=== PATIENT | male | born 1980 | race Two or more races ===

== ENCOUNTER 2025-02-17 15:42 | Inpatient (IN) | payer OTHER, SELFPAY ==
[2025-02-17 15:50] VITALS: BP 125/68
[2025-02-17 15:54] VITALS: BMI 43.4
--- NOTE | 2025-02-17 15:56 | HP.FOC2 ---
Focused History & Physical
Chief Complaint
HPI:
Chief Complaint: Nonhealing wound over the right lateral calf
HPI / Indication for Planned Procedure: 44 yo male with PMH significant for hip infection, endocarditis, multiple strokes (last 2011), pacemaker, prosthetic valve, and ambulatory dysfunction. Pt came in for direct admit for anticoagulation
transition with heparin for arteriogram tomorrow 02/[address] Gudino. Pt arrives at his baseline health. Denies recent illnesses or trauma. Denies changes to his medications. Denies changes to his wound/leg.
Relevant Past Medical History: Stroke and Other (See above)
Relevant Past Surgical History: Positive for (See above)
Review of Systems
Review of Pertinent Systems: All Systems Negative
Medication
See Medication form for detailed medications: Yes
Allergies and Reactions
Patient has Allergies: No
Noted Allergies and Reactions:
Allergy/AdvReac Type Severity Reaction Status Date / Time
No Known Allergies Allergy Unverified 02/17/25 15:37
Pertinent Physical Exam
All Other Systems: Negative
Head/Neck: Normal
Lungs: Normal
Heart: Normal
Abdomen: Normal
Extremities: Other (RLE wrapped with gauze, BL feet warm and pink)
Neurological: Normal
Diagnosis / Assessment
PAD, nonhealing LE wound
Plan / Procedure
RLE arteriogram, possible IVL/CHEMISTRY INTERN/stent placement, possible pedal access with Dr Gudino on 02/18/25
Anesthesia/Sedation to be done by Anesthesia Provider: Yes
--- NOTE | 2025-02-17 16:50 | PTCARENOTE ---
direct admit under vascular practice. Pt is AOx3. LCTA B/L RA, abd round obese. Pace maker present AV paced. pt is w/c dependent. +PP detected with Doppler bilaterally. Dressing to RLE CDI. pt reports VN services at home. oriented to surroundings CB
in reach, instructed to use. contacting vascular for access
[2025-02-17 17:53] LABS: Hematocrit 38.8 % (39.0-52.0); Hemoglobin 12.4 g/dL (13.0-18.0); Mean Corpuscular Hgb 28.1 pg (27.0-31.0); Mean Corpuscular Volume 87.8 fL (80.0-94.0); Mean Platelet Volume 9.4 fL (7.4-10.4); Platelet Count 320 10^3/uL (130-400); Red Blood Cell Count 4.42 10^6/uL (4.70-6.10); Red Cell Dist. Width 16.6 % (11.5-14.5); White Blood Cell Count 8.5 10^3/uL (4.8-10.8)
[2025-02-17 17:56] LABS: INR 1.11; PT 14.8 Sec (11.4-14.6)
[2025-02-17 17:57] LABS: APTT 31.7 Sec (23.4-35.0)
[2025-02-17 18:00] LABS: Blood Urea Nitrogen 28 mg/dl (9-20); Calcium 8.8 mg/dl (8.4-10.2); Carbon Dioxide 33 mmol/L (22-30); Chloride 102 mmol/L (98-107); Estimated Creatinine Clearance 101 ml/min; Glucose 100 mg/dl (70-99); Potassium 4.5 mmol/L (3.5-5.1); Sodium 139 mmol/L (135-145); eGFR > 60.00
[2025-02-17 19:10] VITALS: BP 120/80
[2025-02-17] MEDS: HEPARIN 10000 UNITS IV (20:17)
[2025-02-17] MEDS: HEPARIN 25000 UNITS/250 ML IV (20:18)
--- NOTE | 2025-02-17 20:30 | PTCARENOTE ---
Heparin gtt started per MD order. Pt refusing to be turned and repositioned. Pt refusing hygeine at this time. Pt refusing Rt LE leg wound dressing change, pt states Mother changed it in am. Roxicodone administered for 6/10 RLE pain. Pt given
crackers for snack. HR in the 70's AV paced on the monitor. Call langston in reach. Will continue to monitor.
[2025-02-17] MEDS: ROXICODONE 5 MG PO (20:33)
[2025-02-17 23:10] VITALS: BP 121/68
[2025-02-18] VITALS (11 sets, daily range): BP systolic 95–132; BP diastolic 55–77; BMI 41.5
[2025-02-18] MEDS: TYLENOL 650 MG PO (00:40)
[2025-02-18 03:48] LABS: APTT > 200.0 Sec (23.4-35.0)
--- NOTE | 2025-02-18 03:53 | PTCARENOTE ---
PTT >200. Per protocol Heparin gtt placed on hold for 2 hours. Jomar JAMES notified. Will continue to [facility].
[2025-02-18] MEDS: NSS 500 IV (06:05)
[2025-02-18 07:10] LABS: INR 1.09; PT 14.6 Sec (11.4-14.6)
[2025-02-18 07:14] LABS: Blood Urea Nitrogen 29 mg/dl (9-20); Calcium 8.8 mg/dl (8.4-10.2); Carbon Dioxide 32 mmol/L (22-30); Chloride 103 mmol/L (98-107); Estimated Creatinine Clearance 99 ml/min; Glucose 77 mg/dl (70-99); Potassium 4.2 mmol/L (3.5-5.1); Sodium 139 mmol/L (135-145); eGFR > 60.00
[2025-02-18 07:16] LABS: Hematocrit 40.1 % (39.0-52.0); Hemoglobin 13.1 g/dL (13.0-18.0); Mean Corp Hgb Conc. 32.7 g/dL (33.0-37.0); Mean Corpuscular Hgb 28.9 pg (27.0-31.0); Mean Corpuscular Volume 88.5 fL (80.0-94.0); Platelet Count 335 10^3/uL (130-400); Red Blood Cell Count 4.53 10^6/uL (4.70-6.10); Red Cell Dist. Width 16.8 % (11.5-14.5); White Blood Cell Count 6.9 10^3/uL (4.8-10.8)
[2025-02-18] MEDS: KLONOPIN 0.5 MG PO (10:54)
[2025-02-18] MEDS: LASIX 40 MG PO (10:55)
[2025-02-18] MEDS: COZAAR 50 MG PO (10:55)
[2025-02-18] MEDS: LOW STRENGTH ASPIRIN 81 MG PO (10:55)
[2025-02-18] MEDS: SYNTHROID 88 MCG PO (10:55)
[2025-02-18] MEDS: METHOCARBAMOL 750 MG PO ×2 (10:55→20:27)
[2025-02-18] MEDS: NORVASC 5 MG PO (10:55)
[2025-02-18] MEDS: PROTONIX 40 MG PO (10:55)
[2025-02-18] MEDS: TOPROL XL 25 MG PO (10:56)
--- NOTE | 2025-02-18 12:05 | PTCARENOTE ---
Patient is able to turn self [id number], but not able to pull self up in the bed. Max assist x2-3 to pull patient up in bed.
[2025-02-18 12:10] LABS: APTT 93.3 Sec (23.4-35.0)
--- NOTE | 2025-02-18 13:11 | CM ---
CM following re: discharge planning.
Reviewed pt's chart, met with pt.
Pt is a 44 year old male, admitted with primary dx of Nonhealing wound over the right lateral calf
Pt reports he was born and raised in [place], emigrated to [facility] [place] years ago and resided with mother in [place]. Pt rapports he lives with mother 1SH, no steps to enter. Pt reports he receives SSD, enrolled in PDA waiver community based services
with [employer], receives 40 hours of caregiver services per week provided by mother and manages by [facility]. Pt reports he mostly uses a wheelchair, has a walker, known to [facility] for PT, OT, RN. pt expressed his desire to return back home with
resumptions of [facility], caregiver services and family support. Pt stated he usually getting home from hospitals by ambulance.
PCP: Jj Hernandez
Pharmacy: pt stated private pharmacy in [facility].
D/c plan: return back home with resumptions of [facility], caregiver services and family support.
CM will [id number] with discharge plan updates as hospitalization progresses
--- NOTE | 2025-02-18 13:31 | W.SUR.PREOP ---
Pre-Operative Surgical Note
-
I have examined this patient prior to the performance of the scheduled procedure.
The patient's condition is unchanged from the time of the current History and
Physical and the patient is able to undergo the scheduled procedure.
[2025-02-18] MEDS: HEPARIN 25000 UNITS/250 ML IV (14:31)
--- NOTE | 2025-02-18 14:41 | PTCARENOTE ---
Report given to [facility] leaf [facility]. Patient being transported to [facility]. Patient refused to go to [facility] unless he received his Methadone. Per lab tester, hold methadone dose. patient also refused to remove watches (2) and barron not leave cell phone in the
room. Eli in [facility] made aware.
--- NOTE | 2025-02-18 14:58 | TRANSFER ---
Patient received from [address] [place] [address] after receiving report from Amelia BROTHERS. Patient being seen by Dr. Ruiz currently. BP 110/72 HR 70, 97% and 16RR.
[2025-02-18 16:36] LABS: ACT-LR - POC 152 Seconds (116-155)
[2025-02-18 17:12] LABS: ACT-LR - POC 385 Seconds (116-155)
--- NOTE | 2025-02-18 18:20 | OR.RPT ---
Operative Report
Operative Report
Date of Operation: 02/18/2025
Pre Op Diagnosis:
1. [place] artery occlusive disease right lower extremity with nonhealing right lateral calf and ankle wound
2. Limb threatening ischemia, right lower extremity
Post Op Diagnosis:
1. [place] artery occlusive disease right lower extremity with nonhealing right lateral calf and ankle wound
2. Limb threatening ischemia, right lower extremity
Procedure:
1.) Balloon angioplasty of right tibioperoneal trunk
2.) Balloon angioplasty of right proximal peroneal artery
3.) Balloon angioplasty of right popliteal artery
4.) Balloon angioplasty of right superficial femoral artery
5.) Diagnostic aortobiiliac arteriogram
6.) Diagnostic right lower extremity arteriogram
7.) Ultrasound-guided percutaneous access left common femoral artery
8.) Pro-glide closure left common femoral artery access
Surgeon: Emmett Gudino III, MD
Special Event Assistant: Avinash White MD PGY1
Anesthesia: Sedation with local
Fluoroscopy:
40.9 min
270 mGy
66.33 gy.cm2
Complications: None
Estimated Blood Loss: 10 cc
History and Indications for Procedure: 44-year-old male with complex history including aortic valve endocarditis. Long hospital course following this event. Has now developed nonhealing wounds over the right lateral calf near the ankle.
Preoperative CTA showed occlusions of the right superficial femoral artery and popliteal artery. He was interested in limb preservation options.
Procedure in Detail: Selena Hong was correctly identified and placed supine on the operating table. After adequate induction of anesthesia the bilateral groins were prepped and draped in the usual sterile fashion. A timeout was performed with the
nursing and anesthesia staff confirming the patient's identity as well as the nature and laterality of the procedure.
The left common femoral artery was identified under ultrasound guidance. The artery was patent. The superior and inferior aspects of the femoral head were identified with radiographic guidance and marked at the skin level. The proposed puncture site
was infiltrated with local anesthesia. Under ultrasound guidance we accessed the left common femoral artery with a micropuncture needle and upsized to a 5 Fr sheath over a [employer] wire. The wire and a Shepherds hook flush catheter were advanced into
the distal abdominal aorta and a diagnostic aorto-biiliac arteriogram was performed:
AORTO-ILIAC ARTERIOGRAM:
Aorta: Widely patent with no stenosis identified
Right common iliac artery: Widely patent with no stenosis identified
Right external iliac artery: Widely patent with no stenosis identified
Left common iliac artery: Widely patent with no stenosis identified
Left external iliac artery: Widely patent with no stenosis identified
Under roadmap guidance using a Glidewire and the Shepherds hook catheter we selected the right common iliac artery and then the external iliac artery. A catheter was tracked up and over the aortic bifurcation and placed in the distal external iliac
artery. A diagnostic right lower extremity arteriogram was then performed which demonstrated the following:
RIGHT LOWER EXTREMITY:
Common femoral artery: Widely patent with no stenosis identified
Profunda femoral artery: Patent. Luminal filling defects seen in some branches consistent with chronic nonocclusive thrombus
Superficial femoral artery: Patent proximal and mid segments with no stenosis identified. Occluded distally. Collaterals identified
Popliteal artery: Occluded above, behind and below the knee
Anterior tibial artery: Reconstituted proximally through collaterals.
Tibioperoneal trunk: Occluded
Peroneal artery: Reconstituted via collaterals
Posterior tibial artery: Reconstituted via collaterals
ENDOVASCULAR INTERVENTION: Systemic heparin was administered. Exchanged out for a 6 Fr 45 cm sheath over a [employer] wire. Selected the superficial femoral artery under roadmap guidance with Quickcross catheter and glidewire. The superficial femoral and
popliteal artery occlusion was crossed with a Quickcross and Glidewire. I was able to advance the wire and catheter to the tibioperoneal trunk. Under roadmap guidance I then was able to advance a 0.014 Mongo wire into the peroneal artery outflow.
I then brought into position a 3 mm x 220 mm angioplasty balloon. The balloon was positioned with the radiopaque tip distally in the proximal peroneal artery. I used this balloon to angioplasty the proximal peroneal artery, tibioperoneal trunk,
popliteal artery and superficial femoral artery occlusion. 2 separate inflations were performed to treat the entire length of the disease. Each inflation was performed to nominal pressure and held in place for 4 minutes. Subsequent arteriogram
demonstrated an improved result. The superficial femoral artery, popliteal artery tibioperoneal trunk and peroneal artery was now patent with inline flow. Anterior tibial artery and posterior tibial artery again reconstituted via collaterals. I
then used a 4 mm x 220 mm angioplasty balloon to treat the popliteal artery and superficial femoral artery. Again 2 separate inflations were performed to treat the entire length of the disease. Each inflation was performed to nominal pressure and
held in place for 4 minutes. Subsequent arteriogram demonstrated a nice result with brisk inline flow through a now patent superficial femoral artery and popliteal artery. The tibioperoneal trunk and peroneal artery was patent. The peroneal
artery provided collateral branch flow to the lateral calf and ankle wound. The anterior tibial artery and posterior tibial artery both reconstituted via collaterals. Flow into the foot was identified on completion imaging.
Satisfied with this result we concluded the procedure. Protamine was administered. The sheath tip was pulled back into the left external iliac artery. A Pro-glide closure device was used to secure hemostasis at the left common femoral artery
access site. Hemostasis was achieved. A sterile dressing was applied.
The patient tolerated the procedure well and was taken to the recovery area in stable condition.
Attestation: I was present and responsible for the entire procedure.
Signed:
Emmett Gudino III, MD
Vascular Surgery
[facility]
[2025-02-18] MEDS: KEFLEX 250 MG PO (18:38)
[2025-02-18] MEDS: KEFLEX PO (18:38)
[2025-02-18] MEDS: DILAUDID 0.25 MG IV (18:53)
[2025-02-18] MEDS: NEURONTIN PO (20:20)
[2025-02-18] MEDS: METHADONE 100 MG/10 ML PO (20:20)
[2025-02-18] MEDS: NSS 1000 IV (20:27)
[2025-02-18] MEDS: METHADONE 100 MG/10 ML 160 MG PO (20:29)
--- NOTE | 2025-02-18 20:30 | PTCARENOTE ---
Received pt from PACU. Pt agitated, asking for meds and food. pt noncompliant with keeping left leg straight and head of bed flat, pt keeps attempting to adjust HOB himself. Buttons locked so pt can stay flat. Pt instructed on once he can elevate
head he can have a box lunch. Xray at bedside for RLE. Vascular checks as documented. Left groin site intact. RLE wound care provided and prevelon boots now in place per MD order. Pt remains 100% AV paced on the monitor with HR in the 70's. LEft
forearm int infusing NSS@80ml/hr as ordered. Vital signs stable. Call langston in reach. Will continue to monitor.
[2025-02-18] MEDS: MELATONIN 3 MG PO (21:36)
[2025-02-18] MEDS: COUMADIN 5 MG PO (21:36)
[2025-02-18] MEDS: NEURONTIN 300 MG PO (21:36)
--- NOTE | 2025-02-18 22:15 | PTCARENOTE ---
Pt given box lunch as promised now the HOB restriction has been lifted. Left groin site remains intact. Vital signs stable. Heparin gtt restarted @1500units/hr. Will continue to monitor.
[2025-02-19] MEDS: KEFLEX 250 MG PO ×4 (00:44→17:14)
[2025-02-19] MEDS: METHOCARBAMOL 750 MG PO ×3 (00:50→17:14)
[2025-02-19 03:28] VITALS: BP 107/68
[2025-02-19 04:21] LABS: Hematocrit 36.9 % (39.0-52.0); Hemoglobin 11.9 g/dL (13.0-18.0); Mean Corp Hgb Conc. 32.2 g/dL (33.0-37.0); Mean Corpuscular Hgb 28.1 pg (27.0-31.0); Mean Platelet Volume 9.2 fL (7.4-10.4); Platelet Count 282 10^3/uL (130-400); Red Blood Cell Count 4.24 10^6/uL (4.70-6.10); Red Cell Dist. Width 16.5 % (11.5-14.5); White Blood Cell Count 7.3 10^3/uL (4.8-10.8)
[2025-02-19 04:31] LABS: INR 1.15
[2025-02-19 04:33] LABS: APTT 100.1 Sec (23.4-35.0)
[2025-02-19] MEDS: SYNTHROID 88 MCG PO (05:11)
--- NOTE | 2025-02-19 06:44 | W.PN.VS ---
Today's Communication / Plan
-
hep to coumadin
discharge when inr therapeutic
Assessment/Plan
-
s/p angio
- hep gtt
- coumadin
- follow labs
- oob and ambulate
Subjective Data
-
Date of Service: February 19, 2025
Doing well
no complaints
would like to go home
Objective Data
-
Vital Signs
Temp Pulse Resp BP Pulse Ox
97.5 F 72 18 107/68 98
02/19/25 03:28 02/19/25 03:28 02/19/25 03:28 02/19/25 03:28 02/19/25 03:28
Intake and Output
02/17/25 02/18/25 02/19/25
06:59 06:59 06:59
Intake Total 860 / 860 1320 / 1320
Output Total 1300 / 1300 2600 / 2600
Balance -440 / -440 -1280 / -1280
Intake:
Oral fluids 860 / 860
IV fluids (Total) 1200 / 1200
IV piggybacks 120 / 120
Output:
Urine, Voided 1300 / 1300 2600 / 2600
Lab Results
02/19/25 04:06
02/18/25 06:39
Calcium 8.8 mg/dl (8.4-10.2) 02/18/25 06:39
Physical Exam
-
left groin intact, no hematoma, soft
r PT signal
foot warm
[2025-02-19 08:10] VITALS: BP 115/67
[2025-02-19] MEDS: LIPITOR 40 MG PO (09:10)
[2025-02-19] MEDS: TOPROL XL 25 MG PO (09:10)
[2025-02-19] MEDS: LOW STRENGTH ASPIRIN 81 MG PO (09:10)
[2025-02-19] MEDS: PROTONIX 40 MG PO (09:10)
[2025-02-19] MEDS: LASIX 40 MG PO (09:11)
[2025-02-19] MEDS: METHADONE 100 MG/10 ML 160 MG PO (09:11)
[2025-02-19] MEDS: COZAAR 50 MG PO (09:11)
[2025-02-19] MEDS: NEURONTIN 300 MG PO ×3 (09:11→22:01)
[2025-02-19] MEDS: KLONOPIN 0.5 MG PO (09:11)
[2025-02-19] MEDS: NORVASC 5 MG PO (09:11)
[2025-02-19 11:39] VITALS: BP 121/70
[2025-02-19] MEDS: HEPARIN 25000 UNITS/250 ML IV ×2 (11:41→19:22)
[2025-02-19] MEDS: ROXICODONE 5 MG PO ×3 (11:44→22:38)
--- NOTE | 2025-02-19 11:56 | PTCARENOTE ---
[place] text to community education coordinator vascular surgery that I could not locate patient's left pedal pulse with doppler on 1200 NV assessment. I was able to find left pt pulse with doppler fine. Right LE pulses are still found with doppler. Bilateral LE color,
movement, sensation are equal and remain the same since last assessment at 0800.
[2025-02-19 15:45] VITALS: BP 98/61
[2025-02-19] MEDS: COUMADIN 5 MG PO (17:14)
[2025-02-19] MEDS: MELATONIN 3 MG PO (22:01)
[2025-02-19 23:00] VITALS: BP 125/74
[2025-02-20] VITALS (7 sets, daily range): BP systolic 95–131; BP diastolic 53–72; BMI 41.5
[2025-02-20] MEDS: KEFLEX 250 MG PO ×5 (00:23→23:58)
[2025-02-20] MEDS: METHOCARBAMOL 750 MG PO (02:27)
--- NOTE | 2025-02-20 06:01 | W.PN.VS ---
Today's Communication / Plan
-
inr pending
hep and coumadin
Assessment/Plan
-
s/p angio
- hep gtt
- coumadin
- follow labs
- oob and ambulate
Subjective Data
-
Date of Service: February 20, 2025
doing well no complaints
Objective Data
-
Vital Signs
Temp Pulse Resp BP Pulse Ox
97.9 F 77 18 131/66 96
02/20/25 03:00 02/20/25 03:00 02/20/25 03:00 02/20/25 03:00 02/20/25 03:00
Intake and Output
02/18/25 02/19/25 02/20/25
06:59 06:59 06:59
Intake Total 860 / 860 1320 / 1320 1040 / 1040
Output Total 1300 / 1300 2600 / 2600 1999 / 1999
Balance -440 / -440 -1280 / -1280 -960 / -960
Intake:
Oral fluids 860 / 860 1040 / 1040
IV fluids (Total) 1200 / 1200
IV piggybacks 120 / 120
Output:
Urine, Voided 1300 / 1300 2600 / 2600 1999 / 1999
Lab Results
02/19/25 04:06
02/18/25 06:39
Calcium 8.8 mg/dl (8.4-10.2) 02/18/25 06:39
Physical Exam
-
foot watm
groin intact
PT signal
[2025-02-20] MEDS: SYNTHROID 88 MCG PO (06:09)
[2025-02-20 06:19] LABS: INR 1.31; PT 16.6 Sec (11.4-14.6)
[2025-02-20 07:33] LABS: APTT 41.8 Sec (23.4-35.0)
[2025-02-20] MEDS: PROTONIX 40 MG PO (08:20)
[2025-02-20] MEDS: NEURONTIN 300 MG PO ×3 (08:21→21:35)
[2025-02-20] MEDS: NORVASC 5 MG PO (08:22)
[2025-02-20] MEDS: KLONOPIN 0.5 MG PO (08:22)
[2025-02-20] MEDS: COZAAR 50 MG PO (08:22)
[2025-02-20] MEDS: LIPITOR 40 MG PO (08:22)
[2025-02-20] MEDS: LOW STRENGTH ASPIRIN 81 MG PO (08:22)
[2025-02-20] MEDS: LASIX 40 MG PO (08:22)
[2025-02-20] MEDS: TOPROL XL 25 MG PO (08:22)
[2025-02-20] MEDS: TYLENOL 650 MG PO (08:22)
[2025-02-20] MEDS: ROXICODONE 5 MG PO ×2 (08:23→21:35)
[2025-02-20] MEDS: METHADONE 100 MG/10 ML 160 MG PO (08:23)
[2025-02-20] MEDS: HEPARIN 10000 UNITS IV (08:27)
[2025-02-20] MEDS: HEPARIN 25000 UNITS/250 ML IV (08:35)
[2025-02-20] MEDS: METHOCARBAMOL PO ×3 (12:13→17:10)
[2025-02-20 14:49] LABS: APTT > 200 Sec (23.4-35.0)
--- NOTE | 2025-02-20 16:24 | PTCARENOTE ---
[place] text to Dr. Costello (vascular) about pt's 1453 critical aptt results per protocol. See MAR/flowsheets for further details
[2025-02-20] MEDS: COUMADIN 5 MG PO (17:06)
[2025-02-20] MEDS: MELATONIN 3 MG PO (21:35)
[2025-02-20 23:29] LABS: APTT 134.2 Sec (23.4-35.0)
[2025-02-21] VITALS (7 sets, daily range): BP systolic 79–117; BP diastolic 59–76
[2025-02-21] MEDS: METHOCARBAMOL PO (02:51)
[2025-02-21] MEDS: KEFLEX 250 MG PO ×4 (05:46→23:38)
[2025-02-21] MEDS: SYNTHROID 88 MCG PO (05:46)
[2025-02-21] MEDS: ROXICODONE 5 MG PO ×4 (05:48→20:47)
[2025-02-21] MEDS: HEPARIN 25000 UNITS/250 ML IV (05:53)
[2025-02-21 06:23] LABS: Hematocrit 38.5 % (39.0-52.0); Hemoglobin 12.3 g/dL (13.0-18.0); Mean Corp Hgb Conc. 31.9 g/dL (33.0-37.0); Mean Corpuscular Hgb 28.2 pg (27.0-31.0); Mean Corpuscular Volume 88.3 fL (80.0-94.0); Mean Platelet Volume 9.7 fL (7.4-10.4); Platelet Count 311 10^3/uL (130-400); Red Blood Cell Count 4.36 10^6/uL (4.70-6.10); Red Cell Dist. Width 17.2 % (11.5-14.5); White Blood Cell Count 7.4 10^3/uL (4.8-10.8)
[2025-02-21 06:25] LABS: INR 1.71; PT 20.3 Sec (11.4-14.6)
[2025-02-21 06:26] LABS: APTT 42.8 Sec (23.4-35.0)
--- NOTE | 2025-02-21 07:35 | W.PN.VS ---
Today's Communication / Plan
-
Seen and assessed with Dr Das
Assessment/Plan
-
s/p angio
- Cont hep gtt
- Cont Coumadin, hopefully INR therapeutic tomorrow
Subjective Data
-
Date of Service: February 21, 2025
Pt seen at bedside this am with Dr Das. Pt offers no complaints at this time. No events overnight
Objective Data
-
Vital Signs
Temp Pulse Resp BP Pulse Ox
97.8 F 74 16 117/76 97
02/21/25 07:03 02/21/25 07:03 02/21/25 07:03 02/21/25 07:03 02/21/25 07:03
Intake and Output
02/20/25 02/21/25 02/22/25
06:59 06:59 06:59
Intake Total 1040 / 1040 1860 / 1860
Output Total 1999 / 2129
Balance -960 / -960 -270 / -270
Intake:
Oral fluids 1040 / 1040 1860 / 1860
IV fluids (Total) 0 / 0
Output:
Urine, Voided 19990 / 213
Other:
Number of approximated LARGE 1
amounts of urine
Lab Results
02/21/25 05:47
02/18/25 06:39
Calcium 8.8 mg/dl (8.4-10.2) 02/18/25 06:39
Physical Exam
-
AAOx3
No tachypnea on RA
No tachycardia
left groin intact, no hematoma, soft
r PT signal
foot warm
[2025-02-21] MEDS: LOW STRENGTH ASPIRIN 81 MG PO (08:12)
[2025-02-21] MEDS: PROTONIX 40 MG PO (08:12)
[2025-02-21] MEDS: NEURONTIN 300 MG PO ×3 (08:12→22:08)
[2025-02-21] MEDS: KLONOPIN 0.5 MG PO (08:13)
[2025-02-21] MEDS: NORVASC 5 MG PO (08:13)
[2025-02-21] MEDS: TOPROL XL 25 MG PO (08:14)
[2025-02-21] MEDS: LIPITOR 40 MG PO (08:14)
[2025-02-21] MEDS: LASIX 40 MG PO (08:15)
[2025-02-21] MEDS: COZAAR 50 MG PO (08:15)
[2025-02-21] MEDS: METHADONE 100 MG/10 ML 160 MG PO (08:22)
[2025-02-21] MEDS: HEPARIN 10000 UNITS IV (08:24)
[2025-02-21] MEDS: METHOCARBAMOL 750 MG PO ×2 (10:51→17:25)
--- NOTE | 2025-02-21 11:57 | WOUNDNOTE ---
[facility] RN note: Patient admitted s/p R angioplasty. Patient lives with his mother and is current with VN. He is followed by [facility] wound care center.
See H&P for complete history.
PMH: Pacemaker, aortic valve surgery 2011, L hip surgery 2011, endocarditis, pacer, ambulation dysfunction/contracted.
Wound Location and type/assessment: Patient admitted with: R lateral calf full thickness to subcutaneous layer venous appearing ulcer suspect along with PAD. Moderate yellow, green tinged drainage, wound clean. s/p R angioplasty 02/18/25. Trace-+1
RLE edema. Pedal pulses heard via portable Doppler. Scratch leyva/openings R patel from patient scratching. Sacral crease mild MASD. Posterior thigh discolored dull red with small purple area R upper posterior calf suspect from friction. Chafed areas
on posterior thighs. Heels blanchable mild red and intact.
Appetite: good.
Pressure redistribution devices in place: [employer] Accumax. TruVue lite boots. Patient can turn self in bed. He can lift his legs off the bed. +Knee contracture (R>L).
Plan: RLE dressing changed. Vaseline applied to dry intact skin RLE. R knee high Rod wrap reapplied. Cleansed sacral crease and posterior thigh skin. Vaseline applied to posterior thighs. Patient turned to R semi side lying position with help from
DENEEN Harvey Bariatric air chair cushion placed at foot end of mattress under fitted sheet. TruVue lite boots applied. Instructed patient pressure injury prevention measures.
Will confirm orders with vascular ASSET MANAGEMENT ANALYST and discussed with DENEEN Son.
Care plan to be updated and will follow as needed. Patient to follow up with vascular and his wound care center.
--- NOTE | 2025-02-21 12:00 | WOUNDNOTE ---
R ANKLE/CALF (LATERAL)(with photo flash)
--- NOTE | 2025-02-21 12:00 | WOUNDNOTE ---
R ANKLE/CALF (LATERAL)
--- NOTE | 2025-02-21 12:21 | WOUNDNOTE ---
R ANKLE/CALF (LATERAL) (with photo flash)
[2025-02-21 15:10] LABS: APTT > 200 Sec (23.4-35.0)
--- NOTE | 2025-02-21 15:14 | CM ---
CM following re: discharge planning.
Reviewed pt's chart, met with pt.
Pt is s/p angio 02/18/25, continue supportive care.
Pt lives with mother 1SH, no steps to enter, receives SSD, enrolled in PDA waiver community based services with [employer], receives 40 hours of caregiver services per week provided by mother and manages by [facility]. Pt reports he mostly uses a
wheelchair, has a walker, known to [facility] for PT, OT, RN. pt expressed his desire to return back home with resumptions of [facility], caregiver services and family support. Pt stated he usually getting home from hospitals by ambulance.
D/c plan: return back home with resumptions of [facility], caregiver services and family support.
CM will [id number] with discharge plan updates as hospitalization progresses
[2025-02-21] MEDS: COUMADIN 5 MG PO (17:24)
[2025-02-21] MEDS: DESENEX/MITRAZOL/ZEASORB TOPICAL (20:55)
[2025-02-21] MEDS: MELATONIN 3 MG PO (22:08)
[2025-02-21 23:36] LABS: APTT 103.3 Sec (23.4-35.0)
[2025-02-22] MEDS: METHOCARBAMOL 750 MG PO ×3 (01:14→17:36)
[2025-02-22] MEDS: HEPARIN 25000 UNITS/250 ML IV (01:40)
[2025-02-22 03:15] VITALS: BP 111/69
[2025-02-22] MEDS: ROXICODONE 5 MG PO ×3 (04:24→16:02)
[2025-02-22] MEDS: KEFLEX 250 MG PO ×3 (05:50→17:36)
[2025-02-22] MEDS: SYNTHROID 88 MCG PO (05:50)
[2025-02-22 07:20] VITALS: BP 115/75
[2025-02-22 07:24] LABS: PT 23.7 Sec (11.4-14.6)
[2025-02-22 07:26] LABS: APTT 86.9 Sec (23.4-35.0)
--- NOTE | 2025-02-22 09:30 | W.PN.VS ---
Addendum entered and electronically signed by Emmett Gudino III, MD 02/22/25 17:25:
Doing well. Home today. Follow-up in the office.
Emmett Gudino III, MD
Vascular Surgery
[facility]
Original Note:
Today's Communication / Plan
-
Plan reviewed with attending Dr. Emmett Gudino, who agrees with below plan.
Assessment/Plan
-
s/p angio
- INR above 2, per Dr. Gudino patient is now cleared for discharge to continue Coumadin at home and discontinue heparin infusion
- Follow-up placed in patient's discharge instructions
-Patient education provided in detail instructing patient to offload pressure to right lower extremity, will provide patient with offloading pressure boot for home
- Discharge to home
Subjective Data
-
Date of Service: February 22, 2025
Patient seen and examined at bedside, offers no complaints. Denies nausea, vomiting, fever, and chills. Educated patient on importance of offloading pressure to right lower extremity to heal wounds, explained in detail that he should often shift
positions, not place direct pressure on lateral aspect of right foot/ankle, and wear pressure offloading boots at all times while in bed, patient verbalized understanding.
Objective Data
-
Vital Signs
Temp Pulse Resp BP Pulse Ox
97.8 F 75 16 115/75 95
02/22/25 07:20 02/22/25 07:20 02/22/25 07:20 02/22/25 07:20 02/22/25 07:20
Intake and Output
02/21/25 02/22/25 02/23/25
06:59 06:59 06:59
Intake Total 1860 / 1860 745 / 745 960 / 960
Output Total 2130 / 2130 2450 / 2450 600 / 600
Balance -270 / -270 -1705 / -1705 360 / 360
Intake:
Oral fluids 1860 / 1860 745 / 745 960 / 960
IV fluids (Total) 0 / 0
Output:
Urine, Voided 2130 / 2130 2450 / 2450 600 / 600
Other:
Number of approximated LARGE 1
amounts of urine
Lab Results
02/21/25 05:47
02/18/25 06:39
Calcium 8.8 mg/dl (8.4-10.2) 02/18/25 06:39
Physical Exam
-
AAOx3
No tachypnea on RA
No tachycardia
left groin intact, no hematoma, soft
R PT signal
foot warm
[2025-02-22] MEDS: DESENEX/MITRAZOL/ZEASORB 1 APPLIC TOPICAL (09:40)
[2025-02-22] MEDS: HYDROPHOR 1 APPLIC TOPICAL (09:40)
[2025-02-22] MEDS: NEURONTIN 300 MG PO ×2 (09:41→15:01)
[2025-02-22] MEDS: KLONOPIN 0.5 MG PO (09:41)
[2025-02-22] MEDS: PROTONIX 40 MG PO (09:41)
[2025-02-22] MEDS: NORVASC 5 MG PO (09:41)
[2025-02-22] MEDS: TOPROL XL 25 MG PO (09:41)
[2025-02-22] MEDS: COZAAR 50 MG PO (09:41)
[2025-02-22] MEDS: LASIX 40 MG PO (09:41)
[2025-02-22] MEDS: METHADONE 100 MG/10 ML 160 MG PO (09:42)
[2025-02-22] MEDS: LIPITOR 40 MG PO (09:42)
[2025-02-22] MEDS: LOW STRENGTH ASPIRIN 81 MG PO (09:42)
[2025-02-22 11:00] VITALS: BP 122/76
--- NOTE | 2025-02-22 11:46 | CM ---
Addendum entered by Henri Shearer 02/22/25 13:42:
PMNC completed for [facility], left with .
Addendum entered by Henri Shearer 02/22/25 13:37:
Pt's mother Anitha [phone]
Original Note:
CM following re: discharge planning.
Reviewed pt's chart, met with pt.
Discharge order noted. Pt is aware and he stated his mother arranged ambulance transport with [email or web address] ambulance with picker / packer time 4:00 p.m.
Pt lives with mother 1SH, no steps to enter, receives SSD, enrolled in PDA waiver community based services with [employer], receives 40 hours of caregiver services per week provided by mother and manages by [facility]. Pt reports he mostly uses a
wheelchair, has a walker, known to [facility] for PT, OT, RN. pt expressed his desire to return back home with resumptions of [facility], caregiver services and family support.
A referral to [facility] made, spoke to senior sales representative Kay [phone], pt is accepted for VN services.
Please fax discharge instructions to [facility] at [phone]
D/c plan: return back home with resumptions of [facility], caregiver services and family support. [facility] to transport.
[2025-02-22] MEDS: MUCINEX 600 MG PO (11:49)
[2025-02-22 13:04] VITALS: BP 122/76
--- NOTE | 2025-02-22 13:14 | PN.CDI ---
CDI
- -
CDI:
Physician Documentation Request
Admit Date: 02/17/25 15:42
Dear Vascular Surgery,
Please review the following and provide your response in the progress notes.
Clinical Indicators:
Height: 5'7'
Weight: 246.8lbs
BMI:41.4
If possible, please provide an associated diagnosis related to the abnormal BMI, such as:
BMI >or = to 40
Overweight
Obesity:
Severe or morbid obesity:
BMI is not significant
Other
Use of terms such as suspected, likely, concern for, or probable (associated with a specific diagnosis that is being evaluated, monitored, or treated as if it exists) are acceptable and can be coded in the inpatient setting, when documented at the
time of discharge.
Thank you,
Vandana Castle RN, BSN
CDI Specialist
[place] [facility]
Please use your independent medical judgment in providing your response.
--- NOTE | 2025-02-22 13:28 | W.DS.TRANS ---
DC Summary - Co Chairman
-
Discharge Instructions:
Discharge Diagnosis/Procedures Right lower extremity angiogram with
intervention
Diet As tolerated
Activity No strenuous activity
Driving Restrictions As prior to admission
Bathing Restrictions OK to Shower
Others Tests Your follow up arterial ultrasound is scheduled
on 03/16/2025 at 1:30pm here at [facility]
Instructions:
Stand-Alone Forms: Vascular Surg Discharge Instr
Changes to Home Medications: No
Discharge Medications:
DC Medications w/original date entered in [facility]
amlodipine 5 mg tablet (Norvasc) 5 mg PO DAILY Blood Pressure 02/18/25
aspirin 81 mg chewable tablet 81 mg PO DAILY Blood Clot Prevention/Tx 02/18/25
atorvastatin 40 mg tablet 40 mg PO DAILY High Cholesterol 02/18/25
cefadroxil 500 mg capsule 500 mg PO BID Infection 02/18/25
celecoxib 200 mg capsule (Celebrex) 200 mg PO PRN PRN pain 02/18/25
clonazepam 0.5 mg tablet 0.5 mg PO DAILY Mental Health/Anxiety 02/18/25
ferrous sulfate 325 mg (65 mg iron) tablet 325 mg PO DAILY Supplement 02/18/25
furosemide 40 mg tablet 40 mg PO DAILY Fluid Retention/Swelling 02/18/25
gabapentin 300 mg tablet 300 mg PO TID Neurological Condition 02/18/25
levothyroxine 88 mcg tablet 88 mcg PO DAILY Thyroid 02/18/25
losartan 50 mg tablet 50 mg PO DAILY Blood Pressure 02/18/25
melatonin 3 mg tablet 3 mg PO HS Sleep 02/18/25
methadone 10 mg tablet 160 mg PO DAILY 02/18/25
methocarbamol 750 mg tablet 750 mg PO Q4H Pain 02/18/25
metoprolol succinate 25 mg tablet,extended release 24 hr 25 mg PO DAILY Blood Pressure 02/18/25
pantoprazole 40 mg tablet,delayed release (Protonix) 40 mg PO DAILY Gastrointestinal Issue 02/18/25
warfarin 5 mg tablet 5 mg PO DAILY Blood Clot Prevention/Tx 02/18/25
Home Medication Changes
Pending Results: No
[2025-02-22 15:10] VITALS: BP 101/58
--- NOTE | 2025-02-22 17:04 | W.PN.UPDATE ---
Update Note
Progress Note Update
Informed by nursing the patient is reporting mild headache with 'funny feeling.' Came to bedside to assess patient. He is AAOx3, NAD, moves BL UE with equal 5/5 strength and no drift. RLE good strength, cannot move LLE due to hip joint infection.
Grossly nonfocal neuro exam. VSS. Denies vision changes, unilateral weakness, dysphagia, aphasia, dysarthria, or facial weakness. Upon further exam and ROS pt does note that he has a hx of migraines and this is a similar aura to prior migraines,
which he has not experienced in 1-2 years. With prior migraines he would take Fiorect but unfortunately he is now on Coumadin and cannot take Fiorect due to reaction with barbiturates. Will provide Tylenol and recommend he have a drink with
caffeine. Reviewed PE and ROS with metal numerical control programmer Dr. Emmett Gudino III who agrees with plan.
--- NOTE | 2025-02-22 17:30 | PTCARENOTE ---
Patient ringing asking this RN if he can get a 'CT scan of his head' because he has a GILLIAM. Vitals taken by this RN stable, BP 97/53, patient states feeling 'woozy.' Vascular [employer] CLAIM EXAMINER made aware and at bedside to assess patient, asked RN to give PRN tylenol
and order caffeine for GILLIAM. This RN in room to administer patient's tylenol and evening PO medications, patient asleep in bed. Patient woken by this RN, stated GILLIAM is better and transport team is on way to fern picker patient. Patient okay for DC per
vascular.
[2025-02-22] MEDS: TYLENOL 650 MG PO (17:36)
[2025-02-22] MEDS: COUMADIN 5 MG PO (17:36)
[2025-02-22 17:52] VITALS: BP 97/53
--- NOTE | 2025-02-22 17:58 | PTCARENOTE ---
Patient discharged home, transported by [facility]. This RN removed patient's IV and tele pack, assisted in dressing in home clothes and gathered belongings in room. Patient given warfarin info sheet and transported home with fiber filled
boots. Vitals stable, patient and mother verbalize understanding of DC instructions/medications.
--- NOTE | 2025-02-23 08:53 | W.PN.UPDATE ---
Update Note
Progress Note Update
In response to CDI:
Physician Documentation Request
Admit Date: 02/17/25 15:42
Dear Vascular Surgery,
Please review the following and provide your response in the progress notes.
Clinical Indicators:
Height: 5'7'
Weight: 246.8lbs
BMI:41.4
If possible, please provide an associated diagnosis related to the abnormal BMI, such as:
BMI >or = to 40
Per BMI and CDC obesity categories patient meets criteria for severe or class 3 obesity
== END 2025-02-22 17:50 | disposition home health service (06) | DRG 253 ==
LOC: 2 SOUTH 15:42
PROVIDERS: Nurse Practitioner; Nurse Practitioner Acute Care; ADMITTING PHYSICIAN Surgery Vascular Surgery; PRIMARYCARE PHYSICIAN Internal Medicine
PROC: 047T3ZZ Dilation of Right Peroneal Artery, Percutaneous Approach (ICD-10-PCS; 2025-02-18)
PROC: 047M3ZZ Dilation of Right Popliteal Artery, Percutaneous Approach (ICD-10-PCS; 2025-02-18)
PROC: 047K3ZZ Dilation of Right Femoral Artery, Percutaneous Approach (ICD-10-PCS; 2025-02-18)
DX: I70.232 Atherosclerosis of native arteries of right leg with ulceration of calf (principal); Z68.41 Body mass index [BMI] 40.0-44.9, adult; L97.219 Non-pressure chronic ulcer of right calf with unspecified severity; I35.8 Other nonrheumatic aortic valve disorders; Z86.73 Personal history of transient ischemic attack (TIA), and cerebral infarction without residual deficits; E66.01 Morbid (severe) obesity due to excess calories
CPT/HCPCS: 37224; 37228; 37232; 73590; 75625; 75716; 80048; 85027; 85610; 85730; 86850; 86900; 86901; 87070; C1725; C1760; C1769; C1894; Q9967

== ENCOUNTER → 2025-03-16 13:46 | Outpatient (REF) | payer OTHER, SELFPAY | LOC: RAD 13:46 | PROVIDERS: ATTENDING PHYSICIAN Surgery Vascular Surgery; FAMILY PHYSICIAN Internal Medicine | DX: I77.9 Disorder of arteries and arterioles, unspecified (principal) | CPT/HCPCS: 93922; 93925 ==

== ENCOUNTER → 2025-06-10 10:11 | Outpatient (REF) | payer OTHER, SELFPAY | LOC: DHVS 10:11 | PROVIDERS: ATTENDING PHYSICIAN Registered Nurse; FAMILY PHYSICIAN Internal Medicine | DX: I70.232 Atherosclerosis of native arteries of right leg with ulceration of calf (principal); I77.9 Disorder of arteries and arterioles, unspecified | CPT/HCPCS: 93922 ==